=== PATIENT | male | born 1960 | race American Indian/Alaskan Native ===

== ENCOUNTER 2017-01-30 18:24 | Emergency (ER) | payer MEDICARE ==
[2017-01-30 18:32] VITALS: PULSE 97; RESP 18; TEMP 97.9
[2017-01-30] MEDS ORDERED: Naproxen 550 mg Tab PO STA (19:29)
[2017-01-30] MEDS ORDERED: Naproxen 550 mg Tab PO ONE (19:38)
--- NOTE | 2017-01-30 20:03 | C.PDOC ---
History Of Present Illness 56 year old male with a history of chronic left knee pain and osteoarthritis, presents to the ED with complaints of left knee pain s/p tripping over a stool and twisting it yesterday. Patient states he applied a turmeric paste to his knee and notes he is able to ambulate with a limp. Denies calf pain, change in sensation, or any other complaints at this time. Time Seen by Provider: 01/30/17 19:05 Chief Complaint (Nursing): Lower Extremity Problem/Injury History Per: Patient History/Exam Limitations: no limitations Onset/Duration Of Symptoms: Days Current Symptoms Are (Timing): Still Present Severity: Mild Pain Scale Rating Of: 5 - Knee Description Of Injury: Twisted Alleviating Factor(s): Elevation Past Medical History Reviewed: Historical Data, Nursing Documentation, Vital Signs Vital Signs: Last Vital Signs Temp 97.9 F 01/30/17 20:17 Pulse 97 H 01/30/17 20:17 Resp 18 01/30/17 20:17 BP 121/86 01/30/17 20:17 Pulse Ox 99 01/30/17 20:17 - Medical History PMH: Anxiety, Asthma, Bronchitis, Depression, Diabetes, Schizophrenia Surgical History: Tonsillectomy (28 yrs ago) - [facility] INDIVID PSYCHOTHERAP NEC (10/15/14) OTHER GROUP THERAPY (10/15/14) Family History: States: Unknown Family Hx - Social History Hx Tobacco Use: No Hx Alcohol Use: No Hx Substance Use: No - Immunization History Hx Tetanus Toxoid Vaccination: No Hx Influenza Vaccination: No Hx Pneumococcal Vaccination: No Review Of Systems Except As Marked, All Systems Reviewed And Found Negative. Constitutional: Negative for: Fever, Chills Musculoskeletal: Positive for: Other (+Left knee pain). Negative for: Back Pain Neurological: Negative for: Weakness, Numbness Physical Exam - Physical Exam Appears: Non-toxic, No Acute Distress Skin: Normal Color, Warm, Dry Head: Atraumatic, Normacephalic Eye(s): bilateral: Normal Inspection Oral Mucosa: Moist Extremity: No Calf Tenderness, Capillary Refill (< 2 seconds), No Deformity, Swelling (+Swelling to the lateral aspect of the left knee), Other (+Pain with flexion of the left knee) Pulses: Left Dorsalis Pedis: Normal, Right Dorsalis Pedis: Normal Neurological/Psych: Oriented x3, Normal Speech, Normal Cognition, Normal Motor, Normal Sensation Gait: Steady ED Course And Treatment O2 Sat by Pulse Oximetry: 96 (Room air) Pulse Ox Interpretation: Normal Medical Decision Making Medical Decision Making: Plan: -Left Knee X-ray -Naproxen -Reassess Patient was offered a knee immobilizer or brace but patient refuses. Patient is ambulatory in the ED with steady gait and will follow up with Orthopedst. Disposition - Disposition Referrals: Heraclio Hernandez MD [Staff Provider] - Disposition: HOME/ ROUTINE Disposition Time: 20:00 Condition: GOOD Additional Instructions: Follow up with the medical doctor within 1-2 days. 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 - Scribe Statement The provider has reviewed the documentation as recorded by the Scribe Jorge Stevens. All medical record entries made by the Scribe were at my direction and personally dictated by me. I have reviewed the chart and agree that the record accurately reflects my personal performance of the history, physical exam, medical decision making, and the department course for this patient. I have also personally directed, reviewed, and agree with the discharge instructions and disposition.
[2017-01-30 20:18] VITALS: BP 121/86
[2017-01-30 23:05] VITALS: O2SAT 96
--- NOTE | 2017-01-31 12:30 | RAD ---
PROCEDURE: Left Knee Radiographs. HISTORY: Pain. COMPARISON: None. FINDINGS: BONES: No acute fracture. JOINTS: Tricompartmental osteoarthritis. No articular erosion. JOINT EFFUSION: Trace joint effusion. OTHER FINDINGS: None. IMPRESSION: Tricompartmental osteoarthritis. No acute fracture.
== END 2017-01-30 20:16 | disposition home or self-care (01) ==
LOC: C.ER 18:24
DX: S83.92XA Sprain of unspecified site of left knee, initial encounter (principal); W22.8XXA Striking against or struck by other objects, initial encounter; Y93.89 Activity, other specified; Y92.9 Unspecified place or not applicable

== ENCOUNTER 2017-06-18 08:27 | Day surgery (SDC) | payer MEDICARE, OTHER ==
[2017-06-09 10:11] VITALS: BMI 37.0
[2017-06-18] MEDS ORDERED: Lidocaine 2% w Epi 1:100,000 Inj IJ ONE (10:59)
[2017-06-18] MEDS ORDERED: ceFAZolin IV 2 gm in Dextrose 1 GM/50 ML BAG IVPB ONE (10:59)
[2017-06-18] MEDS ORDERED: Propofol 10 mg/ml Inj (20 ML) ONE (11:07)
[2017-06-18] MEDS ORDERED: Midazolam 2 MG/2 ML VIAL ONE (11:07)
[2017-06-18] MEDS ORDERED: Lactated Ringer's 1,000 ML IV ONE (11:13)
[2017-06-18] MEDS ORDERED: Lidocaine Hydrochloride 5 ML INJ ONE (11:42)
[2017-06-18] MEDS ORDERED: Oxycodone/Acetaminophen 5/325 mg Tab PO PRN (12:16)
--- NOTE | 2017-06-18 12:16 | PCM.SURG1 ---
Surgeon's Initial Post Op Note - Surgeon's Notes Surgeon: Milo Alcaraz MD Supervisor Cell Room: Hoda Chin PA-C Type of Anesthesia: General LMA Anesthesia Administered By: Dr. Cazares Pre-Operative Diagnosis: Left knee medial and lateral meniscal tears, ACL sprain Operative Findings: no tourniquet Post-Operative Diagnosis: Same. osteochondral defect lateral femoral condyle Operation Performed: 1. Left knee arthroscopic partial medial and lateral meniscectomies. 2. Chondroplasty lateral femoral condyle Specimen/Specimens Removed: none Estimated Blood Loss: EBL {In ML}: 2 Blood Products Given: N/A Drains Used: No Drains Post-Op Condition: Fair Date of Surgery/Procedure: 06/18/17 Time of Surgery/Procedure: 12:14 ([place] IMPREGNATOR reviewed, no CDS rx in last year, patient instructed to take medication as directed, risk of dependence, and proper storage and disposal. percocet #30 given, less than 5 day rx)
[2017-06-18] MEDS ORDERED: HYDROmorphone 0.5 mg/0.5 ml ISec IVP PRN (12:25)
[2017-06-18] MEDS ORDERED: Lactated Ringer's 1,000 ML IV SCH (12:30)
[2017-06-18 14:25] VITALS: BP 117/65; PULSE 71; RESP 18; TEMP 97.5; O2SAT 97
--- NOTE | 2017-06-18 23:37 | OP ---
PROCEDURE DATE: 06/18/2017 PREOPERATIVE DIAGNOSES: Left knee medial and lateral meniscal tears, degenerative joint disease and anterior cruciate ligament sprain. POSTOPERATIVE DIAGNOSES: Left knee medial and lateral meniscal tears, degenerative joint disease and anterior cruciate ligament sprain. PROCEDURE: Left knee arthroscopy with medial and lateral meniscectomy and chondroplasty of the lateral femoral condyle. SURGEON: Dr. Alcaraz. ESTIMATOR PRINTING: Ottoniel Recinos, the physician assistant grocery store manager. Ms. Recinos was scrubbed and present throughout the entire case and helped with the patient positioning and wound closure. TYPE OF ANESTHESIA: General. COMPLICATIONS: None. ESTIMATED BLOOD LOSS: 5 mL INDICATIONS FOR PROCEDURE: This is a 57-year-old gentleman who presented with complaints of left knee pain and swelling. Clinical examination consistent with medial and lateral joint line tenderness and knee effusion. MRI was consistent with degenerative tears of both the medial and lateral menisci and ACL sprain and tricompartmental osteoarthritis. After failed nonsurgical management, recommendation was made for left knee arthroplasty. The risks, benefits and alternatives of the procedure were discussed with the patient and informed consent was obtained. DESCRIPTION OF PROCEDURE: After surgical site was finally verified in the preoperative holding area, the patient was taken to the operating room and placed supine on the operating room table. After administration of general anesthesia, the patient received 2 g of Ancef IV. A tourniquet was placed about the left thigh. Care was taken to make sure all bony prominences and nerves were well padded and protected and the left lower extremity was prepped and draped in usual sterile fashion. Bony landmarks were identified about the left knee and our portal sites were injected with a total of 10 mL of 2% lidocaine with epi. An anterolateral arthroscopy portal was established and an arthroscope was inserted into the knee joint. Patellofemoral articulation was evaluated. 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 The medial and lateral gutters as well as suprapatellar recess were noted to be free of any loose bodies and pathologic plica. Next, the medial compartment was evaluated, and through an anteromedial portal, the medial meniscus was probed and the patient was noted to have a complex tear of the posterior horn of the medial meniscus. Using a combination of Basket forceps and a full radius shaver, meniscectomy was performed resecting the posterior horn back to a small but stable rim. The chondral surface of the medial femoral condyle was noted to have some grade 2 chondromalacia. Next, the intercondylar notch was evaluated. ACL was well visualized, probed and was noted to have some mild laxity, however, there was some intrasubstance tearing appreciated. No full-thickness detachment was appreciated. An intraoperative Johny was performed and the knee appeared stable. At this point, the lateral compartment was evaluated. A significant portion of the weightbearing area was noted to have a chondral defect and appeared to have some fibrocartilage added space. This accomplished at least 60% to 70% of the weightbearing surface. A loose fibrocartilage was noted on the lateral periphery, and this was debrided using a full radius shaver and basket forceps in order to make it a stable rim. The lateral meniscus was probed. The patient was noted to have a small undersurface type tearing of the posterior horn extending into the midportion of the meniscus. The anterior horn was noted to have some mild fraying. Using Basket forceps and a full radius shaver, a lateral meniscectomy was performed resecting the meniscus back to a stable rim. At this point, the knee joint was irrigated with arthroscopic cannula and all instruments were removed. All portal sites were closed using interrupted 3-0 Vicryl suture and Dermabond to the skin. A sterile dressing was applied. The patient was awakened from the procedure, and taken to recovery room in stable and satisfactory condition. Guicho Alcaraz MD
== END 2017-06-18 14:20 | disposition home or self-care (01) ==
LOC: C.SDS 08:27
PROVIDERS: ATTEND Orthopaedic Surgery
DX: M23.332 Other meniscus derangements, other medial meniscus, left knee (principal); M17.12 Unilateral primary osteoarthritis, left knee; M23.362 Other meniscus derangements, other lateral meniscus, left knee; M23.42 Loose body in knee, left knee
CPT/HCPCS: 29879; 29880; 82948; 97116; 97161; G8978; G8979; G8980; J0171; J0690; J2250; J2405; J2704; J3010; J7120